=== PATIENT | female | born 1990 | race Two or more races ===

== ENCOUNTER 2017-01-19 11:25 | Emergency (ER) | payer OTHER ==
[~2017-01-19] VITALS: Ht 167.6 cm; Wt 65.8 kg
[2017-01-19 12:39] VITALS: BP 110/68
[2017-01-19] MEDS ORDERED: Fluconazole 100mg tab ORAL ONE (12:45)
[2017-01-19 13:11] LABS: APPEARANCE,URINE SLIGHTLY CLOUDY; KETONES,URINE NEGATIVE (NEGATIVE); NITRITE,URINE NEGATIVE (NEGATIVE); PH,URINE 5 (4.5-8.0); PROTEIN,URINE NEGATIVE (NEGATIVE); UROBILINOGEN,URINE NORMAL MG/DL (0.0-1.0)
[2017-01-19 13:23] LABS: BACTERIA,URINE FEW /HPF; LEUKOCYTE ESTERASE ,URINE 1+ (NEGATIVE); MUCUS,URINE FEW /LPF (NONE/OCC); RBC,URINE 0-2 /HPF (0 - 2); SQUAMOUS EPITHELIAL CELL,UR MODERATE /LPF (NONE/OCC)
[2017-01-19] MEDS ORDERED: FLUCONAZOLE100 MG ORAL (13:32)
--- NOTE | 2017-01-19 13:32 | Emergency Room Report ---
History of Present Illness General Chief Complaint: Vaginal Source: Patient Present Illness HPI 26-year-old female presents emergency department complaining of thick white vaginal discharge in addition to labial swelling x2 days. Patient states she unprotected intercourse 2 weeks ago she denies she would like to be tested for chlamydia and gonorrhea. Patient denies dyspareunia she denies recent antibiotic use. Denies vaginal lesions however she states she has a history of herpes she states she never had an outbreak she was diagnosed by blood work. Patient denies abdominal pain, frequency, hematuria, dysuria, or swollen tender lymph nodes. denies joint pain. Denies CP, Palpitations, LOC, AMS, dizziness, Changes in Vision, Sensation, paresthesias, or a sudden severe headache. Allergies: Coded Allergies: PISTACHIO NUT (Verified Allergy, Severe, 01/19/17) Wheat (Verified Allergy, Unknown, 01/19/17) Uncoded Allergies: AMARYNTH (Allergy, Severe, 01/19/17) SHELLEY (Allergy, Severe, 01/19/17) COLA NUTS (Allergy, Severe, 01/19/17) EGG WHITES (Allergy, Severe, 01/19/17) tongue edema Patient History Past Medical History: see triage record Past Surgical History: none Pertinent Family History: none Last Menstrual Period: 4-3 Now: No Immunizations: UTD Reviewed Nursing Documentation: PMH: Agreed, PSxH: Agreed Nursing Documentation-PMH Past Medical History: No Stated History Review of Systems All Other Systems: negative except mentioned in HPI Physical Exam Vital Signs Date Time Temp Pulse Resp B/P Pulse Ox O2 Delivery O2 Flow Rate FiO2 01/19/17 11:47 98.1 67 18 110/68 98 Room Air Sp02 EP Interpretation: reviewed, normal General Appearance: no apparent distress, alert, GCS 15, non-toxic Head: normocephalic, atraumatic Eyes: bilateral eye PERRL, bilateral eye normal inspection ENT: hearing grossly normal, normal pharynx, no angioedema, normal voice Neck: full range of motion, supple/symm/no masses Respiratory: chest non-tender, lungs clear, normal breath sounds, speaking full sentences Cardiovascular #1: regular rate, rhythm, no edema Gastrointestinal: non tender, soft, no guarding, no rebound Rectal: deferred Genitourinary: normal inspection, no CVA tenderness, adnexa normal, other - external vaginal labial swelling, and mild erythema and tenderness, thick white vaginal d/c noted, no CMT Musculoskeletal: back normal, gait/station normal, normal range of motion, non- tender Neurologic: alert, oriented x3, responsive, motor strength/tone normal, sensory intact, speech normal Psychiatric: judgement/insight normal, memory normal, mood/affect normal, no suicidal/homicidal ideation Skin: normal color, no rash, warm/dry, well hydrated Lymphatic: no adenopathy Medical Decision Making PA Attestation Dr. Lo is my supervising Physician whom patient management has been discussed with. Diagnostic Impression: Primary Impression: Vaginitis and vulvovaginitis ER Course 26-year-old female presents emergency department complaining of thick white vaginal discharge in addition to labial swelling x2 days. Patient states she unprotected intercourse 2 weeks ago she denies she would like to be tested for chlamydia and gonorrhea. Patient denies dyspareunia she denies recent antibiotic use. Denies vaginal lesions however she states she has a history of herpes she states she never had an outbreak she was diagnosed by blood work. Patient denies abdominal pain, frequency, hematuria, dysuria, or swollen tender lymph nodes. denies joint pain. Ddx considered but are not limited to UTi , Pyelo, STI, Stone, Cystitis, vaginal laceration, vaginitis. Vital signs: are WNL, pt. is afebrile H& PE are most consistent with: Vulvovaginitis, thick white d/c consistent with yeast will send wet mount and G&C cultures. ORDERS: - UA labs are attached : few bacteria, no wbc's , mucus noted. -Urine C&G : Pending -Wet Mount: moderate bacteria, no trich,clue,yeast, noted. ED INTERVENTIONS: -Diflucan PO treated clinically DISCHARGE: At this time pt. is stable for d/c to home. Will provide printed patient care instructions, and any necessary prescriptions. Care plan and follow up instructions have been discussed with the patient prior to discharge. Labs Test 01/19/17 12:36 Urine Color Pale yellow Urine Appearance Slightly cloudy Urine pH 5 (4.5-8.0) Urine Specific [place] 1.020 (1.005-1.035) Urine Protein Negative (NEGATIVE) Urine Glucose (UA) Negative (NEGATIVE) Urine Ketones Negative (NEGATIVE) Urine Occult Blood Negative (NEGATIVE) Urine Nitrite Negative (NEGATIVE) Urine Bilirubin Negative (NEGATIVE) Urine Urobilinogen Normal MG/DL (0.0-1.0) Urine Leukocyte Esterase 1+ (NEGATIVE) Urine RBC 0-2 /HPF (0 - 2) Urine WBC 2-4 /HPF (0 - 2) Urine Squamous Epithelial Cells Moderate /LPF (NONE/OCC) Urine Bacteria Few /HPF (NONE) Urine Mucus Few /LPF (NONE/OCC) Urine HCG, Qualitative Negative Last Vital Signs Date Time Temp Pulse Resp B/P Pulse Ox O2 Delivery O2 Flow Rate FiO2 01/19/17 12:39 98.1 67 18 110/68 98 Room Air Disposition: HOME, SELF-CARE Condition: Stable Scripts Fluconazole (FLUCONAZOLE) 100 Mg Tablet 100 MG ORAL DAILY for 3 Days, #3 TAB 0 Refills Prov: Oriana Montesinos 01/19/17 Referrals: NON PHYSICIAN (PCP) Patient Instructions: Vaginitis, [id number] Additional Instructions: Take medications as directed. Follow up with PCP in 3-5 days Return sooner to ED if new symptoms occur, or current symptoms become worse. - Please note that this Emergency Department Report was dictated using [employer] press operator technology software, occasionally this can lead to erroneous entry secondary to interpretation by the dictation equipment. Oriana Montesinos Jan 19, 2017 13:32
[2017-01-19 13:35] VITALS: BP 110/68
== END 2017-01-19 13:35 | disposition home or self-care (01) ==
LOC: EMR 13:10
DX: N76.0 Acute vaginitis (principal); Z91.012 Allergy to eggs; Z91.018 Allergy to other foods
CPT/HCPCS: 81003; 81025; 87210; 87491; 87590; 99283

== ENCOUNTER 2017-03-01 12:03 | Emergency (ER) | payer OTHER ==
[~2017-03-01] VITALS: Ht 170.2 cm; Wt 65.8 kg
[~2017-03-01 12:03] MED LIST: FLUCONAZOLE100 MG ORAL
[2017-03-01 12:52] VITALS: BP 92/54
[2017-03-01 13:17] LABS: APPEARANCE,URINE CLEAR; KETONES,URINE NEGATIVE (NEGATIVE); LEUKOCYTE ESTERASE ,URINE 1+ (NEGATIVE); NITRITE,URINE NEGATIVE (NEGATIVE); PH,URINE 6 (4.5-8.0); PROTEIN,URINE NEGATIVE (NEGATIVE); UROBILINOGEN,URINE NORMAL MG/DL (0.0-1.0)
[2017-03-01] MEDS ORDERED: DIFLUCAN150 MG PO (13:28)
[2017-03-01 13:34] LABS: BACTERIA,URINE FEW /HPF; RBC,URINE 0-2 /HPF (0 - 2); SQUAMOUS EPITHELIAL CELL,UR FEW /LPF (NONE/OCC)
[2017-03-01 13:45] VITALS: BP 92/54
--- NOTE | 2017-03-01 14:13 | Emergency Room Report ---
History of Present Illness General Chief Complaint: Vaginal Source: Patient Present Illness [facility] The patient is a 26 old female presenting with increased white vaginal discharge and vaginal itching for the past week. The patient states that she was seen in this emergency department one month prior for same symptoms and diagnosed and treated for a vaginal yeast infection. The patient states that symptoms completely resolved but have now returned. She states that she has had only 2 vaginal yeast infections in the past and this feels the same. She denies any pain. She denies any other symptoms including dysuria, hematuria, increased urinary frequency, flank pain, abdominal pain, nausea, vomiting, fever , chills Allergies: Coded Allergies: PISTACHIO NUT (Verified Allergy, Severe, 01/19/17) Wheat (Verified Allergy, Unknown, 01/19/17) Uncoded Allergies: AMARYNTH (Allergy, Severe, 01/19/17) SHELLEY (Allergy, Severe, 01/19/17) COLA NUTS (Allergy, Severe, 01/19/17) EGG WHITES (Allergy, Severe, 01/19/17) tongue edema Patient History Past Medical History: see triage record Pertinent Family History: none Last Menstrual Period: 02/01/17 Now: No - unsure Reviewed Nursing Documentation: PMH: Agreed, PSxH: Agreed Nursing Documentation-PMH Past Medical History: No Stated History Review of Systems All Other Systems: negative except mentioned in HPI Physical Exam Vital Signs Date Time Temp Pulse Resp B/P Pulse Ox O2 Delivery O2 Flow Rate FiO2 03/01/17 12:18 98.1 78 16 92/54 97 Room Air Sp02 EP Interpretation: reviewed, normal General Appearance: no apparent distress, alert, GCS 15, non-toxic Head: normocephalic, atraumatic Eyes: bilateral eye PERRL, bilateral eye normal inspection ENT: hearing grossly normal, normal pharynx, no angioedema, normal voice Gastrointestinal: normal bowel sounds, non tender, soft, non-distended, no guarding, no rebound Musculoskeletal: back normal, gait/station normal, normal range of motion, non- tender, calf tenderness Neurologic: alert, oriented x3, responsive, motor strength/tone normal, sensory intact, speech normal Psychiatric: judgement/insight normal, memory normal, mood/affect normal, no suicidal/homicidal ideation Skin: normal color, no rash, warm/dry, well hydrated Lymphatic: no adenopathy Medical Decision Making PA Attestation Dr. Mc is my supervising physician. Patient management was discussed with my supervising physician Diagnostic Impression: Primary Impression: Vaginal yeast infection ER Course The patient is a 26 old female presenting with increased white vaginal discharge and vaginal itching Differential diagnosis considered but not limited to: UTI, candidiasis, BV, pyelonephritis, PE: Vitals WNL. NAD. Abdomen: Normal appearance. Non distended. No ecchymosis. Normal BS. Non TTP. No McBurney point tenderness. No guarding. No CVA tenderness Urinalysis shows no signs of infection. [facility] D[facility]an as this is a recurring infection. ER precautions given and pt needs to FU with PMD as well as OBGYN Laboratory Tests Test 03/01/17 12:45 Urine Color Pale yellow Urine Appearance Clear Urine pH 6 (4.5-8.0) Urine Specific [place] 1.020 (1.005-1.035) Urine Protein Negative (NEGATIVE) Urine Glucose (UA) Negative (NEGATIVE) Urine Ketones Negative (NEGATIVE) Urine Occult Blood Negative (NEGATIVE) Urine Nitrite Negative (NEGATIVE) Urine Bilirubin Negative (NEGATIVE) Urine Urobilinogen Normal MG/DL (0.0-1.0) Urine Leukocyte Esterase 1+ (NEGATIVE) H Urine RBC 0-2 /HPF (0 - 2) Urine WBC 2-4 /HPF (0 - 2) Urine Squamous Epithelial Cells Few /LPF (NONE/OCC) Urine Bacteria Few /HPF (NONE) Lab Results Impression UA: no signs of infection. Neg preg Last Vital Signs Date Time Temp Pulse Resp B/P Pulse Ox O2 Delivery O2 Flow Rate FiO2 03/01/17 12:18 98.1 78 16 92/54 97 Room Air Status: improved Disposition: HOME, SELF-CARE Condition: Improved Scripts Fluconazole (DIFLUCAN) 150 Mg Tablet 150 MG PO DAILY, #10 TAB Prov: WIL TOBAR 03/01/17 Patient Instructions: Vaginal Yeast Infection, Adult Additional Instructions: I discussed my findings with the patient. All questions and concerns have been answered. Treatment and medication compliance have been addressed. I advised the patient that they need to follow up with PMD in 3-5 days. Return to ED if symptoms worsen, new symptoms arise, or if needed for any reason. Patient verbalized understanding of discharge instructions. WIL TOBAR March 01, 2017 14:13
== END 2017-03-01 13:45 | disposition home or self-care (01) ==
LOC: EMR 12:30
DX: B37.3 Candidiasis of vulva and vagina (principal); Z91.018 Allergy to other foods; Z91.012 Allergy to eggs
CPT/HCPCS: 81003; 99283

== ENCOUNTER 2017-03-23 11:01 | Emergency (ER) | payer OTHER ==
[~2017-03-23] VITALS: Ht 167.6 cm; Wt 66.2 kg
[~2017-03-23 11:01] MED LIST changes: +DIFLUCAN150 MG PO
[2017-03-23] MEDS ORDERED: DiphenhydrAMINE 50mg/ml Inj IVP ONE (11:30)
[2017-03-23] MEDS ORDERED: D5NS 1,000 ML IV ONE (11:30)
[2017-03-23] MEDS ORDERED: Metoclopramide 10mg/2ml Inj IVP ONE (11:30)
[2017-03-23 11:56] LABS: APPEARANCE,URINE CLEAR; KETONES,URINE 3+ (NEGATIVE); LEUKOCYTE ESTERASE ,URINE 1+ (NEGATIVE); NITRITE,URINE NEGATIVE (NEGATIVE); PH,URINE 8 (4.5-8.0); PROTEIN,URINE NEGATIVE (NEGATIVE); UROBILINOGEN,URINE NORMAL MG/DL (0.0-1.0)
[2017-03-23 12:05] LABS: BACTERIA,URINE FEW /HPF; MUCUS,URINE FEW /LPF (NONE/OCC); RBC,URINE 0-2 /HPF (0 - 2); SQUAMOUS EPITHELIAL CELL,UR MODERATE /LPF (NONE/OCC)
[2017-03-23 12:20] LABS: BASOPHILS % (AUTO) 0.6 % (0.0-2.0); EOSINOPHILS % (AUTO) 0.2 % (0.0-3.0); LYMPHOCYTES % (AUTO) 12.5 % (20.0-45.0); MEAN CORPUSCULAR HEMOGLOBIN 30.8 PG (27.0-31.0); MEAN CORPUSCULAR HGB CONC 35.2 G/DL (32.0-36.0); MEAN CORPUSCULAR VOLUME 87 FL (80-99); MEAN PLATELET VOLUME 6.2 FL (6.5-10.1); MONOCYTES % (AUTO) 4.1 % (1.0-10.0); NEUTROPHILS % (AUTO) 82.6 % (45.0-75.0); PLATELET COUNT 422 K/UL (150-450); RED BLOOD COUNT 4.15 M/UL (4.20-5.40); RED CELL DISTRIBUTION WIDTH 10.8 % (11.6-14.8); WHITE BLOOD COUNT 10.1 K/UL (4.8-10.8)
[2017-03-23 12:38] LABS: ALANINE AMINOTRANSFERASE 10 U/L (3-33); ALBUMIN/GLOBULIN RATIO 1.4 (1.0-2.7); ANION GAP 18 (5-15); ASPARTATE AMINO TRANSFERASE 16 U/L (5-40); CALCIUM 9.2 mg/dL (8.6-10.2); CARBON DIOXIDE 23 mEQ/L (20-30); CHLORIDE 95 mEQ/L (98-107); CREATININE 0.8 mg/dL (0.5-0.9); GLOMERULAR FILTRATION RATE > 60 mL/min (>60); HEMOLYSIS 6; LIPASE 27 U/L (< 60); POTASSIUM 4.2 mEQ/L (3.4-4.9); SODIUM 136 mEQ/L (135-145); TOTAL PROTEIN 6.9 g/dL (6.6-8.7)
[2017-03-23 14:17] VITALS: BP 90/54
--- NOTE | 2017-03-23 15:04 | Emergency Room Report ---
History of Present Illness General Chief Complaint: Complications Source: Patient Present Illness HPI Patient unable to keep down liquids. Water causes her to gag. She passed out twice yesterday (by herself). No trauma, but woke up with her dog looking at her. No incontinence or lingual trauma. She is - has not seen ob. Believes she is around 6 weeks. No fevers, but gets chilled during vomiting episodes. Not vomit blood. No diarrhea or dysuria. No vaginal bleeding. R lower abdominal pain constant for 2 days. No meds taken. States feels "strange" and somewhat pressure. She denied this pain to RN but reports 3-5/10 to me, not radiating. Recent of her mother which weighs upon her. She declines to talk about it. She states she is safe at home. Syncope in past fairly frequently. No sig med problem found in past. 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 Now: Yes : 1 Para: 0 Reviewed Nursing Documentation: PMH: Agreed, PSxH: Agreed Nursing Documentation-PMH Past Medical History: No Stated History Review of Systems All Other Systems: negative except mentioned in HPI Physical Exam Vital Signs Date Time Temp Pulse Resp B/P Pulse Ox O2 Delivery O2 Flow Rate FiO2 03/23/17 11:15 98.4 61 14 110/71 100 Room Air Sp02 EP Interpretation: reviewed, normal General Appearance: well appearing, no apparent distress, GCS 15 Head: normocephalic Eyes: bilateral eye PERRL, bilateral eye normal inspection ENT: dry mucus membranes - no lingual macerations Neck: supple Respiratory: lungs clear, normal breath sounds Cardiovascular #1: regular rate, rhythm Cardiovascular #2: 2+ radial (R) Gastrointestinal: normal inspection, normal bowel sounds, non tender, no mass, non-distended Musculoskeletal: back normal, gait/station normal, normal range of motion Neurologic: alert, oriented x3, motor strength/tone normal, DTRs symmetric, sensory intact, cerebellar normal, speech normal Psychiatric: mood/affect normal, anxious - slightly Skin: normal inspection, warm/dry Medical Decision Making Diagnostic Impression: Primary Impression: Hyperemesis gravidarum Additional Impressions: 6 weeks gestation of Abdominal pain Qualified Codes: R10.31 - Right lower quadrant pain Syncope Qualified Codes: R55 - Syncope and collapse ER Course Patient presents with early , abdominal pain and syncope. Ddx; ectopic , ovarian cyst, UTI, hyperemesis gravidarum amongst others. H/O syncope in past and not keeping down liquids. History and exam against seizures. Needs eval with labs and ultrasound. Also needs IV hydration with dextrose and treatment with reglan and benadryl. Labs c/w early . No UTI or CBC/CMP abnormalities. Quant = [id number]. Ultrasound with 6 week 4 day IUP with HR 116. Small subchorionic bleed. Min fluid CDS and possible cyst R. Improved with treatment. Tolerating PO. Patient stable for outpatient observation and treatment. Laboratory Tests Test 03/23/17 11:36 03/23/17 12:00 Urine Color Pale yellow Urine Appearance Clear Urine pH 8 (4.5-8.0) Urine Specific [place] 1.010 (1.005-1.035) Urine Protein Negative (NEGATIVE) Urine Glucose (UA) Negative (NEGATIVE) Urine Ketones 3+ (NEGATIVE) H Urine Occult Blood Negative (NEGATIVE) Urine Nitrite Negative (NEGATIVE) Urine Bilirubin Negative (NEGATIVE) Urine Urobilinogen Normal MG/DL (0.0-1.0) Urine Leukocyte Esterase 1+ (NEGATIVE) H Urine RBC 0-2 /HPF (0 - 2) Urine WBC 2-4 /HPF (0 - 2) Urine Squamous Epithelial Cells Moderate /LPF (NONE/OCC) H Urine Bacteria Few /HPF (NONE) Urine Mucus Few /LPF (NONE/OCC) H White Blood Count 10.1 K/UL (4.8-10.8) Red Blood Count 4.15 M/UL (4.20-5.40) L Hemoglobin 12.8 G/DL (12.0-16.0) Hematocrit 36.2 % (37.0-47.0) L Mean Corpuscular Volume 87 FL (80-99) Mean Corpuscular Hemoglobin 30.8 PG (27.0-31.0) Mean Corpuscular Hemoglobin Concent 35.2 G/DL (32.0-36.0) Red Cell Distribution Width 10.8 % (11.6-14.8) L Platelet Count 422 K/UL (150-450) Mean Platelet Volume 6.2 FL (6.5-10.1) L Neutrophils (%) (Auto) 82.6 % (45.0-75.0) H Lymphocytes (%) (Auto) 12.5 % (20.0-45.0) L Monocytes (%) (Auto) 4.1 % (1.0-10.0) Eosinophils (%) (Auto) 0.2 % (0.0-3.0) Basophils (%) (Auto) 0.6 % (0.0-2.0) Sodium Level 136 mEQ/L (135-145) Potassium Level 4.2 mEQ/L (3.4-4.9) Chloride Level 95 mEQ/L (98-107) L Carbon Dioxide Level 23 mEQ/L (20-30) Anion Gap 18 (5-15) H Blood Urea Nitrogen 7 mg/dL (7-23) Creatinine 0.8 mg/dL (0.5-0.9) Estimate Glomerular Filtration Rate > 60 mL/min (>60) Glucose Level 90 mg/dL (74-106) Calcium Level 9.2 mg/dL (8.6-10.2) Total Bilirubin 0.5 mg/dL (0.0-1.2) Aspartate Amino Transferase (AST) 16 U/L (5-40) Alanine Aminotransferase (ALT) 10 U/L (3-33) Alkaline Phosphatase 39 U/L (35-104) Total Protein 6.9 g/dL (6.6-8.7) Albumin 4.1 g/dL (3.5-5.2) Globulin 2.8 g/dL Albumin/Globulin Ratio 1.4 (1.0-2.7) Lipase 27 U/L (< 60) Human Chorionic Gonadotropin, Quant 70337 mIU/mL Rhythm Strip Diag. Results EP Interpretation: yes Rhythm: NSR, no PVC's, no ectopy CT/MRI/US Diagnostic Results CT/MRI/US Diagnostic Results : Imaging Test Ordered: ultrasound Impression Impression: 6 week 2 day, by crown-rump length measurement, single live intrauterine . Small subchorionic hemorrhage Exophytic 2.5 cm right ovarian cyst. This may represent either an exophytic corpus luteum or a paraovarian cyst Free fluid in the right adnexal region and cul-de-sac, probably physiologic Last Vital Signs Date Time Temp Pulse Resp B/P Pulse Ox O2 Delivery O2 Flow Rate FiO2 03/23/17 15:16 98.2 75 16 94/57 99 Room Air Status: improved Disposition: HOME, SELF-CARE Condition: Improved Scripts Promethazine HCl (Promethegan) 25 Mg Supp.rect 25 MG RECTAL Q8HR Y for Nausea & Vomiting, #10 SUPP 1 Refill Prov: Ron Mc M.D. 03/23/17 Promethazine Hcl* (PHENERGAN*) 25 Mg Tablet 25 MG ORAL Q8HR, #10 TAB 1 Refill Prov: Ron Mc M.D. 03/23/17 Referrals: [facility],REFERRING (PCP) Ron Mc M.D. Mar 23, 2017 15:04
[2017-03-23] MEDS ORDERED: PHENERGAN25 M1 ORAL (15:14)
[2017-03-23 15:16] VITALS: BP 94/57
[2017-03-23] MEDS ORDERED: PHENERGAN SUPP25 MG RECTAL (15:18)
--- NOTE | 2017-03-23 17:44 | Diagnostic Imaging Report ---
Indication: PAIN positive test, nausea, vomiting, pelvic pain, right lower quadrant pain Technique: Transabdominal and transvaginal images Comparison: None Findings: Uterus measures 11.8 cm in length by 4.5 cm AP. Within the intermediate is a gestational sac, containing a pole with a crown-rump length of 6 mm. This corresponds to an estimated gestational age of 6 weeks 2 days. This demonstrates positive heart activity, heart rate 116 beats per minute. Yolk sac is also demonstrated Small subcentimeter subchorionic hemorrhage is seen at the right lateral aspect of the gestational sac. Right ovary measures 4.5 cm in length, demonstrates an exophytic 2.5 cm cyst. Free fluid is seen in the right adnexal region and cul-de-sac. Left ovary measures 3.6 cm in length. No left ovarian mass demonstrated. Impression: 6 week 2 day, by crown-rump length measurement, single live intrauterine . Small subchorionic hemorrhage Exophytic 2.5 cm right ovarian cyst. This may represent either an exophytic corpus luteum or a paraovarian cyst Free fluid in the right adnexal region and cul-de-sac, probably physiologic
== END 2017-03-23 15:50 | disposition home or self-care (01) ==
LOC: EMR 11:48
DX: O21.0 Mild hyperemesis gravidarum (principal); O26.891 Other specified pregnancy related conditions, first trimester; R55 Syncope and collapse; R10.30 Lower abdominal pain, unspecified; O34.81 Maternal care for other abnormalities of pelvic organs, first trimester; Z3A.01 Less than 8 weeks gestation of pregnancy; N83.201 Unspecified ovarian cyst, right side; Z91.018 Allergy to other foods; Z91.012 Allergy to eggs
CPT/HCPCS: 36415; 76801; 76830; 80053; 81003; 83690; 84702; 85025; 86850; 86900; 86901; 96360; 96361; 96374; 96375; 99284; J1200; J2765

== ENCOUNTER 2017-04-03 18:36 | Emergency (ER) | payer OTHER ==
[~2017-04-03] VITALS: Ht 167.6 cm; Wt 61.2 kg
[~2017-04-03 18:36] MED LIST changes: +PHENERGAN SUPP25 MG RECTAL; +PHENERGAN25 M1 ORAL
[2017-04-03 19:15] VITALS: BP 119/67
[2017-04-03 19:32] LABS: BASOPHILS % (AUTO) 0.9 % (0.0-2.0); LYMPHOCYTES % (AUTO) 22.9 % (20.0-45.0); MEAN CORPUSCULAR HEMOGLOBIN 32.1 PG (27.0-31.0); MEAN CORPUSCULAR HGB CONC 35.3 G/DL (32.0-36.0); MEAN CORPUSCULAR VOLUME 91 FL (80-99); MEAN PLATELET VOLUME 6.3 FL (6.5-10.1); MONOCYTES % (AUTO) 4.5 % (1.0-10.0); NEUTROPHILS % (AUTO) 70.7 % (45.0-75.0); PLATELET COUNT 482 K/UL (150-450); RED BLOOD COUNT 3.91 M/UL (4.20-5.40); RED CELL DISTRIBUTION WIDTH 10.7 % (11.6-14.8); WHITE BLOOD COUNT 10.5 K/UL (4.8-10.8)
[2017-04-03 19:33] LABS: ALANINE AMINOTRANSFERASE 11 U/L (3-33); ALBUMIN/GLOBULIN RATIO 1.6 (1.0-2.7); ANION GAP 12 (5-15); ASPARTATE AMINO TRANSFERASE 15 U/L (5-40); CALCIUM 9.3 mg/dL (8.6-10.2); CARBON DIOXIDE 24 mEQ/L (20-30); CHLORIDE 102 mEQ/L (98-107); CREATININE 0.6 mg/dL (0.5-0.9); GLOMERULAR FILTRATION RATE > 60 mL/min (>60); HEMOLYSIS 7; POTASSIUM 4.4 mEQ/L (3.4-4.9); SODIUM 138 mEQ/L (135-145); TOTAL PROTEIN 6.7 g/dL (6.6-8.7)
[2017-04-03 19:35] LABS: APPEARANCE,URINE CLEAR; KETONES,URINE NEGATIVE (NEGATIVE); LEUKOCYTE ESTERASE ,URINE 1+ (NEGATIVE); NITRITE,URINE NEGATIVE (NEGATIVE); PH,URINE 7 (4.5-8.0); PROTEIN,URINE NEGATIVE (NEGATIVE); UROBILINOGEN,URINE NORMAL MG/DL (0.0-1.0)
[2017-04-03 19:43] LABS: BACTERIA,URINE OCCASIONAL /HPF; RBC,URINE 0-2 /HPF (0 - 2); SQUAMOUS EPITHELIAL CELL,UR MODERATE /LPF (NONE/OCC); WBC,URINE 0-2 /HPF (0 - 2)
[2017-04-03] MEDS ORDERED: ZOFRAN4 M3 ORAL (19:50)
[2017-04-03] MEDS ORDERED: ZOFRAN4 MG ORAL (19:56)
--- NOTE | 2017-04-03 19:56 | Emergency Room Report ---
Physical Exam Vital Signs Date Time Temp Pulse Resp B/P Pulse Ox O2 Delivery O2 Flow Rate FiO2 04/03/17 18:40 98.2 76 17 119/67 99 Room Air Medical Decision Making Diagnostic Impression: Primary Impression: Hyperemesis gravidarum Additional Impression: Syncope Qualified Codes: R55 - Syncope and collapse ER Course I saw this patient independent of PA. Agree with his workup. Patient is, and has hyperemesis gravidarum. She had a syncopal episode when she stood up. She felt better now. Labs unremarkable. No urinary tract infection. We'll discharge home with Zofran. Last Vital Signs Date Time Temp Pulse Resp B/P Pulse Ox O2 Delivery O2 Flow Rate FiO2 04/03/17 19:15 98.2 17 119/67 99 Room Air 04/03/17 18:40 76 Disposition: HOME, SELF-CARE Condition: Improved Scripts Ondansetron (Zofran) 4 Mg Tablet 4 MG ORAL Q6H Y for Nausea & Vomiting, #30 TAB 0 Refills Prov: TRUDY MATTHEW M.D. 04/03/17 Ondansetron* (ZOFRAN*) 4 Mg Tablet 4 MG ORAL Q6H Y for Nausea & Vomiting, #15 TAB Prov: WIL TOBAR 04/03/17 Referrals: [facility],REFERRING (PCP) Patient Instructions: Eating Plan for Hyperemesis Gravidarum, Hyperemesis Gravidarum Additional Instructions: I discussed my findings with the patient. All questions and concerns have been answered. Treatment and medication compliance have been addressed. I advised the patient that they need to follow up with PMD in 3-5 days. Return to ED if symptoms worsen, new symptoms arise, or if needed for any reason. Patient verbalized understanding of discharge instructions. Please follow up with [facility] as soon as possible TRUDY MATTHEW M.D. Apr 03, 2017 19:56
[2017-04-03 19:58] VITALS: BP 119/67
--- NOTE | 2017-04-03 20:55 | Emergency Room Report ---
History of Present Illness General Chief Complaint: General Complaint Source: Patient (WIL TOBAR) Present Illness HPI The patient is a 27-year-old female at 7 weeks gestation presenting for syncopal episode. The patient states that she has a history of syncopal episodes and seizure disorder. She was seen in this emergency department recently for the same complaint or an ultrasound was done and found an IUP. The patient was discharged with a diagnosis of hyperemesis gravidarum. The patient states that today she stood up, felt dizzy, and experienced a syncopal episode. She is unsure of how long she was out for. She also admits to one episode of vomiting after this episode. She now admits to a feeling of nausea but denies other symptoms including abdominal pain, back pain, vaginal bleeding, cramping, headache, swelling of extremities (WIL TOBAR) Allergies: Coded Allergies: PISTACHIO NUT (Verified Allergy, Severe, 01/19/17) Wheat (Verified Allergy, Unknown, 01/19/17) Uncoded Allergies: AMARYNTH (Allergy, Severe, 01/19/17) SHELLEY (Allergy, Severe, 01/19/17) COLA NUTS (Allergy, Severe, 01/19/17) EGG WHITES (Allergy, Severe, 01/19/17) tongue edema Patient History Past Medical History: see triage record Pertinent Family History: none Last Menstrual Period: 7 weeks Now: Yes : 1 Reviewed Nursing Documentation: PMH: Agreed, PSxH: Agreed (WIL TOBAR) Nursing Documentation-PMH Past Medical History: No Stated History (WIL TOBAR.Kian) Review of Systems All Other Systems: negative except mentioned in HPI (WIL TOBAR P.AHeath) Physical Exam Vital Signs Date Time Temp Pulse Resp B/P Pulse Ox O2 Delivery O2 Flow Rate FiO2 04/03/17 18:40 98.2 76 17 119/67 99 Room Air Sp02 EP Interpretation: reviewed, normal General Appearance: no apparent distress, alert, GCS 15, non-toxic Head: normocephalic, atraumatic Eyes: bilateral eye PERRL, bilateral eye normal inspection ENT: hearing grossly normal, normal pharynx, no angioedema, normal voice Respiratory: chest non-tender, lungs clear, normal breath sounds, no wheezing, speaking full sentences Cardiovascular #1: regular rate, rhythm, no edema, no murmur, no rub Gastrointestinal: normal bowel sounds, non tender, soft, non-distended, no guarding, no rebound Genitourinary: normal inspection, no CVA tenderness Musculoskeletal: back normal, gait/station normal, normal range of motion Neurologic: alert, oriented x3, responsive, motor strength/tone normal, sensory intact, speech normal Psychiatric: judgement/insight normal, memory normal, mood/affect normal, no suicidal/homicidal ideation Skin: normal color, no rash, warm/dry, well hydrated (WIL TOBAR) Medical Decision Making PA Attestation Dr. Guy is my supervising physician. Patient management was discussed with my supervising physician (WIL TOBAR) Diagnostic Impression: Primary Impression: Hyperemesis gravidarum Additional Impression: Syncope Qualified Codes: R55 - Syncope and collapse ER Course The patient is a 27-year-old female at 7 weeks gestation presenting for syncopal episode. Differential diagnoses considered include but not limited to hyperemesis gravidarum, threatened , hemorrhagic cyst, among others PE: vitals WNL. NAD A&Ox4 Abdomen: Normal appearance. Non distended. No ecchymosis. Normal BS. Non TTP. No McBurney point tenderness. No guarding. No CVA tenderness The patient is given IV fluids and Zofran and is feeling better. Blood work and urine are unremarkable. No signs of infection. No anemia. No electrolyte imbalance. EKG unremarkable Patient will be discharged home with a prescription for by mouth Zofran. She is given ER precautions and will followup with her NEONATAL NURSE Laboratory Tests Test 04/03/17 19:05 White Blood Count 10.5 K/UL (4.8-10.8) Red Blood Count 3.91 M/UL (4.20-5.40) L Hemoglobin 12.6 G/DL (12.0-16.0) Hematocrit 35.6 % (37.0-47.0) L Mean Corpuscular Volume 91 FL (80-99) Mean Corpuscular Hemoglobin 32.1 PG (27.0-31.0) H Mean Corpuscular Hemoglobin Concent 35.3 G/DL (32.0-36.0) Red Cell Distribution Width 10.7 % (11.6-14.8) L Platelet Count 482 K/UL (150-450) H Mean Platelet Volume 6.3 FL (6.5-10.1) L Neutrophils (%) (Auto) 70.7 % (45.0-75.0) Lymphocytes (%) (Auto) 22.9 % (20.0-45.0) Monocytes (%) (Auto) 4.5 % (1.0-10.0) Eosinophils (%) (Auto) 1.0 % (0.0-3.0) Basophils (%) (Auto) 0.9 % (0.0-2.0) Urine Color Pale yellow Urine Appearance Clear Urine pH 7 (4.5-8.0) Urine Specific [place] 1.010 (1.005-1.035) Urine Protein Negative (NEGATIVE) Urine Glucose (UA) Negative (NEGATIVE) Urine Ketones Negative (NEGATIVE) Urine Occult Blood Negative (NEGATIVE) Urine Nitrite Negative (NEGATIVE) Urine Bilirubin Negative (NEGATIVE) Urine Urobilinogen Normal MG/DL (0.0-1.0) Urine Leukocyte Esterase 1+ (NEGATIVE) H Urine RBC 0-2 /HPF (0 - 2) Urine WBC 0-2 /HPF (0 - 2) Urine Squamous Epithelial Cells Moderate /LPF (NONE/OCC) H Urine Bacteria Occasional /HPF (NONE) Sodium Level 138 mEQ/L (135-145) Potassium Level 4.4 mEQ/L (3.4-4.9) Chloride Level 102 mEQ/L (98-107) Carbon Dioxide Level 24 mEQ/L (20-30) Anion Gap 12 (5-15) Blood Urea Nitrogen 9 mg/dL (7-23) Creatinine 0.6 mg/dL (0.5-0.9) Estimate Glomerular Filtration Rate > 60 mL/min (>60) Glucose Level 97 mg/dL (74-106) Calcium Level 9.3 mg/dL (8.6-10.2) Total Bilirubin 0.3 mg/dL (0.0-1.2) Aspartate Amino Transferase (AST) 15 U/L (5-40) Alanine Aminotransferase (ALT) 11 U/L (3-33) Alkaline Phosphatase 45 U/L (35-104) Total Protein 6.7 g/dL (6.6-8.7) Albumin 4.2 g/dL (3.5-5.2) Globulin 2.5 g/dL Albumin/Globulin Ratio 1.6 (1.0-2.7) Human Chorionic Gonadotropin, Quant 10230 mIU/mL Lab Results Impression All unremarkable (WIL TOBAR) ER Course I saw this patient with a PA. Agree with treatment plan. (TRUDY GUY M.D.) EKG Diagnostic Results EP Interpretation: NSR. No acute changes Rate: normal - 72 Rhythm: NSR ST Segments: no acute changes ASA given to the pt in ED: No PA Scribe Text EKG was reviewed and read with my supervising physician. No acute ST segment changes are seen. Normal rate and rhythm. No acute changes. (WIL TOBAR) Last Vital Signs Date Time Temp Pulse Resp B/P Pulse Ox O2 Delivery O2 Flow Rate FiO2 04/03/17 19:58 98.2 17 119/67 99 Room Air 04/03/17 18:40 76 Status: improved (WIL TOBAR) Disposition: HOME, SELF-CARE Condition: Improved Scripts Ondansetron (Zofran) 4 Mg Tablet 4 MG ORAL Q6H Y for Nausea & Vomiting, #30 TAB 0 Refills Prov: TRUDY GUY M.D. 04/03/17 Referrals: [facility],REFERRING (PCP) Patient Instructions: Eating Plan for Hyperemesis Gravidarum, Hyperemesis Gravidarum Additional Instructions: I discussed my findings with the patient. All questions and concerns have been answered. Treatment and medication compliance have been addressed. I advised the patient that they need to follow up with PMD in 3-5 days. Return to ED if symptoms worsen, new symptoms arise, or if needed for any reason. Patient verbalized understanding of discharge instructions. Please follow up with NEONATAL NURSE as soon as possible WIL TOBAR Apr 03, 2017 20:55 TRUDY GUY M.D. Apr 03, 2017 21:10
--- NOTE | 2017-04-04 11:15 | Cardiology Report ---
APPROVED REPORT EKG Measurement Heart [id number] Normal sinus rhythm with sinus arrhythmia Normal ECG
== END 2017-04-03 19:58 | disposition home or self-care (01) ==
LOC: EMR 19:07
DX: O21.0 Mild hyperemesis gravidarum (principal); Z3A.01 Less than 8 weeks gestation of pregnancy; O26.891 Other specified pregnancy related conditions, first trimester; R55 Syncope and collapse; Z91.012 Allergy to eggs; Z91.018 Allergy to other foods
CPT/HCPCS: 36415; 80053; 81003; 84702; 85025; 93005; 96374; 96375; 99284; J2405; J7040

== ENCOUNTER 2017-04-10 21:38 | Emergency (ER) | payer OTHER ==
[~2017-04-10] VITALS: Ht 165.1 cm; Wt 63.5 kg
[~2017-04-10 21:38] MED LIST changes: +ZOFRAN4 M3 ORAL; +ZOFRAN4 MG ORAL
[2017-04-10 22:30] VITALS: BP 101/63
[2017-04-10] MEDS ORDERED: FLUCONAZOLE100 MG ORAL (22:56)
[2017-04-10] MEDS ORDERED: DICLEGIS DR 101 EACH PO (22:58)
[2017-04-10 23:50] VITALS: BP 99/64
--- NOTE | 2017-04-11 02:53 | Emergency Room Report ---
History of Present Illness General Chief Complaint: Complications Source: Patient Present Illness HPI This is a 27-year-old female presented after increased vomiting. Patient had multiple episodes of vomiting she is approximately 6 weeks . Patient stated that she had not been keeping down liquids or solids. The patient reported having multiple episodes of vomiting a day. The patient denies other substance use. She states that she had been not been having any fever or diarrhea. She denies severe headache. She denied recent travel.Patient was noted to have increased vaginal discharge and states that she had a yeast infection Allergies: Coded Allergies: PISTACHIO NUT (Verified Allergy, Severe, 01/19/17) Wheat (Verified Allergy, Unknown, 01/19/17) Uncoded Allergies: AMARYNTH (Allergy, Severe, 01/19/17) SHELLEY (Allergy, Severe, 01/19/17) COLA NUTS (Allergy, Severe, 01/19/17) EGG WHITES (Allergy, Severe, 01/19/17) tongue edema Patient History Past Medical History: see triage record Last Menstrual Period: 9 weeks Now: Yes Reviewed Nursing Documentation: PMH: Agreed, PSxH: Agreed Nursing Documentation-PMH Past Medical History: No Stated History Review of Systems All Other Systems: negative except mentioned in HPI Physical Exam Vital Signs Date Time Temp Pulse Resp B/P Pulse Ox O2 Delivery O2 Flow Rate FiO2 04/10/17 22:23 98.2 75 16 101/63 100 Room Air Sp02 EP Interpretation: reviewed, normal General Appearance: normal inspection, well appearing, no apparent distress, alert, GCS 15 Head: atraumatic ENT: normal ENT inspection, hearing grossly normal, normal voice Neck: normal inspection, full range of motion, supple, no bony tend Respiratory: normal inspection, lungs clear, normal breath sounds, no respiratory distress, no retraction, no wheezing Cardiovascular #1: regular rate, rhythm, no edema Gastrointestinal: normal inspection, normal bowel sounds, non tender, soft, no guarding, no hernia, other - gravid uterus Genitourinary: no CVA tenderness Musculoskeletal: normal inspection, back normal, normal range of motion Neurologic: normal inspection, alert, oriented x3, responsive, milled lumber grader III-XII nml as tested, speech normal Psychiatric: normal inspection, judgement/insight normal, mood/affect normal Skin: normal inspection, normal color, no rash Medical Decision Making Diagnostic Impression: Primary Impression: Vaginal yeast infection Additional Impression: ER Course Patient presented for abdominal pain. Differential diagnoses included ischemic bowel, appendicitis, perforated viscus, abdominal aortic aneurysm, inferior myocardial infarction, viral gastroenteritis, ectopic . The bedside ultrasound was performed which showed intrauterine with heartbeat approximately 140 beats a minute. The patient was the noted have a normal orthostatic vital signs. The patient was given prescription for Diclegis. The patient is advised to follow up with primary care doctor in 2-3 days. Patient is advised to return if any worsening condition or if any changes in status that are concerning. Last Vital Signs Date Time Temp Pulse Resp B/P Pulse Ox O2 Delivery O2 Flow Rate FiO2 04/10/17 23:50 60 18 99/64 98 Room Air 04/10/17 22:30 98.2 Status: improved Disposition: HOME, SELF-CARE Condition: Stable Scripts Doxylamine/Pyridoxine Hcl (DICLEGIS DR 10-10 MG TABLET) 1 Each Tablet.dr 2 EACH PO QHS for Nausea & Vomiting, #30 TAB Prov: Damian Nuñez 04/10/17 Fluconazole (FLUCONAZOLE) 100 Mg Tablet 100 MG ORAL ONCE, #1 TAB 0 Refills Prov: Damian Nuñez 04/10/17 Patient Instructions: Hyperemesis Gravidarum, Vaginal Yeast Infection, Adult Damian Nuñez Apr 11, 2017 02:53
== END 2017-04-10 23:50 | disposition home or self-care (01) ==
LOC: EMR 22:48
DX: O21.9 Vomiting of pregnancy, unspecified (principal); Z3A.01 Less than 8 weeks gestation of pregnancy; Z88.8 Allergy status to other drugs, medicaments and biological substances; O26.891 Other specified pregnancy related conditions, first trimester; B37.3 Candidiasis of vulva and vagina; Z91.012 Allergy to eggs; Z91.018 Allergy to other foods
CPT/HCPCS: 99284